=== PATIENT | male | born 1985 | race Caucasian/White ===

== ENCOUNTER 2020-03-23 07:00 | Outpatient (CLI) | payer BC | END 2020-03-23 23:59 | disposition home or self-care (01) | LOC: COV 07:00 | PROVIDERS: ATTEND Physician Assistant Medical | DX: R07.0 Pain in throat (principal); Z20.828 Contact with and (suspected) exposure to other viral communicable diseases ==

== ENCOUNTER 2020-03-23 10:00 | Outpatient (CLI) | payer BC | END 2020-03-23 23:59 | disposition home or self-care (01) | LOC: LAB.S 10:00 | PROVIDERS: ATTEND Physician Assistant Medical | DX: R07.0 Pain in throat (principal) | CPT/HCPCS: 87070; 87275; 87276 ==